=== PATIENT | male | born 1995 | race Hispanic/Latino ===

== ENCOUNTER 2018-03-24 19:20 | Emergency (ER) | payer OTHER, SELFPAY ==
[2018-03-24 19:36] VITALS: BP 149/101; PULSE 100; RESP 20; TEMP 37.2; O2SAT 97; BMI 31.3
--- NOTE | 2018-03-24 20:45 | ED.URI ---
HPI - URI/Sore Throat <LEVAR MillsP - Last Filed: 03/24/18 21:26> General Chief Complaint: Upper Respiratory Symptoms Stated Complaint: chest pain Time Seen by Provider: 03/24/18 20:39 Source: patient Mode of arrival: ambulatory Limitations: no limitations History of Present Illness MD Complaint: cough and nasal congestion Onset (ago): week(s) (1) Duration: constant Severity: mild Relieving factors: other (none tried) Exacerbating factors: nothing Description of mucous: yellow Able to tolerate fluids by mouth: Yes Associated symptoms: nasal congestion, sore throat and cough Treatments prior to arrival: none Related Data Allergies Allergy/AdvReac Type Severity Reaction Status Date / Time Penicillins Allergy Intermediate Verified 03/24/18 19:41 Sulfa (Sulfonamide Allergy Mild Verified 03/24/18 19:42 Antibiotics) Review of Systems <KAYLI Mills - Last Filed: 03/24/18 21:26> Review of Systems All systems reviewed & are unremarkable except as noted in HPI and below Constitutional Reports as per HPI, Denies fever(s) and Denies headache(s) ENT Ears, Nose, Mouth, and Throat: Reports as per HPI, Denies facial pain, Denies headache(s), Reports nasal congestion and Denies neck pain Cardiovascular Denies chest pain and Denies dyspnea Respiratory Reports cough, Denies excessive phlegm production, Reports pain with cough and Denies dyspnea Gastrointestinal Gastrointestinal: Denies abdominal pain Musculoskeletal Denies neck pain Neurologic Denies headache(s) Exam <LEVAR MillsP - Last Filed: 03/24/18 21:26> Initial Vital Signs Initial Vital Signs: Vital Signs Temperature 98.9 F 03/24/18 19:36 Pulse Rate 100 H 03/24/18 19:36 Respiratory Rate 20 03/24/18 19:36 Blood Pressure 149/101 H 03/24/18 19:36 Pulse Oximetry 97 03/24/18 19:36 Const General: cooperative, healthy appearing, comfortable, well developed and well groomed Nutritional Appearance: average body habitus and well nourished Orientation: alert, awake and oriented x3 HENMT Head: normal to inspection and normocephalic Ears: hearing grossly normal bilaterally, external ears normal and TM's normal bilaterally Nose: external nose normal and No nasal discharge Face and sinus: normal facial exam, sinuses nontender and face symmetric Mouth: oral mucosae normal, lip normal and moist mucous membranes Teeth and gingiva: dentition normal and gingiva normal Throat: posterior oropharynx normal, uvula midline and abnormal tonsil on the right erythema and hypertrophy 1+; no exudates, on the left erythema and hypertrophy 1+; no exudates and bilaterally Eyes General: appearance normal, both eyes and all related structures Visual Belcher: normal visual belcher by confrontation Alignment and Position: alignment normal Periorbital: periorbital findings normal Eyelids: eyelids normal Conjunctivae: conjunctivae normal Sclera: sclerae normal Cornea: corneas normal Pupils: PERRL Neck Neck: normal visual inspection, full ROM, no meningeal signs, trachea midline, supple, No positive Brudzinski's sign and No positive Kernig's sign Chest Chest: normal inspection of the chest Resp Effort & Inspection: normal respiratory effort and able to speak in complete sentences Auscultation: clear to auscultation bilaterally, no crackles and no wheezes Cardio Rate: regular rate Rhythm: regular rhythm Heart Sounds: S1 normal and S2 normal Back/Spine/Pelvis Back: normal to inspection Cervical Spine: normal cervical lordosis Thoracic/Lumbar Spine: thoracic and lumbar spine normal to inspection Skin General: no rashes or lesions noted Rashes: no rashes Neuro General: alert, awake and oriented x3 Cognition: normal cognition Speech: speech normal Gait: normal gait Motor: muscle tone normal throughout Sensory Exam: no sensory deficits noted Extrem General: normal to inspection and full ROM Right upper extremity: normal to inspection and full ROM Left upper extremity: normal to inspection and full ROM Right lower extremity: normal to inspection and full ROM Left lower extremity: normal to inspection and full ROM Psych Appearance: grossly normal and well kempt Mental Status: mental status grossly normal Speech and Movement: speech and movement normal Mood: congruent mood Affect: normal affect Attitude: cooperative Thought Process: normal Thought Content: normal Judgment: judgment good <Mai Uribe, DO - Last Filed: 03/25/18 02:55> Initial Vital Signs Initial Vital Signs: Vital Signs Temperature 98.9 F 03/24/18 19:36 Pulse Rate 100 H 03/24/18 19:36 Respiratory Rate 20 03/24/18 19:36 Blood Pressure 149/101 H 03/24/18 19:36 Pulse Oximetry 97 03/24/18 19:36 Course <Julia Neil PRODUCTION MACHINE OPERATOR - Last Filed: 03/24/18 21:26> Orders Ordered: ED Orders 03/24/18 20:51 XR chest 2V Stat Vital Signs - 8 hr 03/24/18 19:36 03/24/18 21:27 Temperature 98.9 F 98.6 F Pulse Rate 100 H 97 H Respiratory Rate 20 16 Blood Pressure 149/101 H 143/97 H Pulse Oximetry 97 99 <Mai Uribe DO - Last Filed: 03/25/18 02:55> Orders Ordered: ED Orders 03/24/18 20:51 XR chest 2V Stat Vital Signs - 8 hr 03/24/18 19:36 03/24/18 21:27 Temperature 98.9 F 98.6 F Pulse Rate 100 H 97 H Respiratory Rate 20 16 Blood Pressure 149/101 H 143/97 H Pulse Oximetry 97 99 MDM - URI/Sore Throat <Julia Neil PRODUCTION MACHINE OPERATOR - Last Filed: 03/24/18 21:26> Differential Diagnosis Differential diagnosis: Likely upper respiratory infection, sinusitis, viral infection, bronchitis, influenza, pharyngitis and other (tonsillitis, pneumonia, pleurisy, costochondritis) Imaging Data Chest x-ray: Radiologist's impression: Patient: Tony Dueñas MR#: [id number] : 1995 Acct:[id number] Age/Sex: 22 / M Date of Service: 03/24/18 Loc: ED Accession Number: [id number] Procedure: XR chest 2V Ordering Provider: Julia Neil PROCEDURE: XR CHEST 2V INDICATIONS: 22 year-old male with cough and fevers. TECHNIQUE: 2 views of the chest were acquired. COMPARISON: None. FINDINGS: Surgical changes and devices: None. Lungs and pleura: No pleural effusions or pneumothorax. Lungs are clear. Mediastinum: Mediastinal contours are normal. Heart size is normal. Bones and chest wall: No suspicious bony abnormalities. Soft tissues appear unremarkable. IMPRESSION: No acute cardiopulmonary disease. Dictated by: Ulices Mendez M.D. on 03/24/2018 at 21:16 Approved by: Ulices Mendez M.D. on 03/24/2018 at 21:16 Discharge Plan Departure Patient Disposition: Home, Self-Care Clinical Impression: Upper respiratory infection Discharge Date/Time: 03/24/18 21:40 Interventions: ED Discharge Assessment Last Done: 03/24/18 21:27 Instructions: DI for Viral Upper Respiratory Infection -- Adult Activity Restrictions/Additional Instructions: over the counter cough/cold medicine, push fluids, monitor for any fever and treat accordingly with tylenol/motrin, as discussed Referrals: Zenon Gillespie MD [Physician] - (in 5-7 days as needed) Stand Alone Forms: Work/School Restrictions <Mai Uribe DO - Last Filed: 03/25/18 02:55> Cosign ED Attending Elioature Attestation: I was immediately available in the department for consultation. Documentation has been reviewed. I agree with assessment and plan.
--- NOTE | 2018-03-24 20:51 | DI.RAD.S_ITS ---
PROCEDURE: XR CHEST 2V INDICATIONS: 22 year-old male with cough and fevers. TECHNIQUE: 2 views of the chest were acquired. COMPARISON: None. FINDINGS: Surgical changes and devices: None. Lungs and pleura: No pleural effusions or pneumothorax. Lungs are clear. Mediastinum: Mediastinal contours are normal. Heart size is normal. Bones and chest wall: No suspicious bony abnormalities. Soft tissues appear unremarkable. IMPRESSION: No acute cardiopulmonary disease. Dictated by: Ulices Mendez M.D. on 03/24/2018 at 21:16 Approved by: Ulices Mendez M.D. on 03/24/2018 at 21:16
--- NOTE | 2018-03-24 20:59 | ED_ITS ---
HPI - URI/Sore Throat <LEVAR MillsP - Last Filed: 03/24/18 21:26> General Chief Complaint: Upper Respiratory Symptoms Stated Complaint: chest pain Time Seen by Provider: 03/24/18 20:39 Source: patient Mode of arrival: ambulatory Limitations: no limitations History of Present Illness MD Complaint: cough and nasal congestion Onset (ago): week(s) (1) Duration: constant Severity: mild Relieving factors: other (none tried) Exacerbating factors: nothing Description of mucous: yellow Able to tolerate fluids by mouth: Yes Associated symptoms: nasal congestion, sore throat and cough Treatments prior to arrival: none Related Data Allergies Allergy/AdvReac Type Severity Reaction Status Date / Time Penicillins Allergy Intermediate Verified 03/24/18 19:41 Sulfa (Sulfonamide Allergy Mild Verified 03/24/18 19:42 Antibiotics) Review of Systems <KAYLI Mills - Last Filed: 03/24/18 21:26> Review of Systems All systems reviewed & are unremarkable except as noted in HPI and below Constitutional Reports as per HPI, Denies fever(s) and Denies headache(s) ENT Ears, Nose, Mouth, and Throat: Reports as per HPI, Denies facial pain, Denies headache(s), Reports nasal congestion and Denies neck pain Cardiovascular Denies chest pain and Denies dyspnea Respiratory Reports cough, Denies excessive phlegm production, Reports pain with cough and Denies dyspnea Gastrointestinal Gastrointestinal: Denies abdominal pain Musculoskeletal Denies neck pain Neurologic Denies headache(s) Exam <LEVAR MillsP - Last Filed: 03/24/18 21:26> Initial Vital Signs Initial Vital Signs: Vital Signs Temperature 98.9 F 03/24/18 19:36 Pulse Rate 100 H 03/24/18 19:36 Respiratory Rate 20 03/24/18 19:36 Blood Pressure 149/101 H 03/24/18 19:36 Pulse Oximetry 97 03/24/18 19:36 Const General: cooperative, healthy appearing, comfortable, well developed and well groomed Nutritional Appearance: average body habitus and well nourished Orientation: alert, awake and oriented x3 HENMT Head: normal to inspection and normocephalic Ears: hearing grossly normal bilaterally, external ears normal and TM's normal bilaterally Nose: external nose normal and No nasal discharge Face and sinus: normal facial exam, sinuses nontender and face symmetric Mouth: oral mucosae normal, lip normal and moist mucous membranes Teeth and gingiva: dentition normal and gingiva normal Throat: posterior oropharynx normal, uvula midline and abnormal tonsil on the right erythema and hypertrophy 1+; no exudates, on the left erythema and hypertrophy 1+; no exudates and bilaterally Eyes General: appearance normal, both eyes and all related structures Visual Belcher: normal visual belcher by confrontation Alignment and Position: alignment normal Periorbital: periorbital findings normal Eyelids: eyelids normal Conjunctivae: conjunctivae normal Sclera: sclerae normal Cornea: corneas normal Pupils: PERRL Neck Neck: normal visual inspection, full ROM, no meningeal signs, trachea midline, supple, No positive Brudzinski's sign and No positive Kernig's sign Chest Chest: normal inspection of the chest Resp Effort & Inspection: normal respiratory effort and able to speak in complete sentences Auscultation: clear to auscultation bilaterally, no crackles and no wheezes Cardio Rate: regular rate Rhythm: regular rhythm Heart Sounds: S1 normal and S2 normal Back/Spine/Pelvis Back: normal to inspection Cervical Spine: normal cervical lordosis Thoracic/Lumbar Spine: thoracic and lumbar spine normal to inspection Skin General: no rashes or lesions noted Rashes: no rashes Neuro General: alert, awake and oriented x3 Cognition: normal cognition Speech: speech normal Gait: normal gait Motor: muscle tone normal throughout Sensory Exam: no sensory deficits noted Extrem General: normal to inspection and full ROM Right upper extremity: normal to inspection and full ROM Left upper extremity: normal to inspection and full ROM Right lower extremity: normal to inspection and full ROM Left lower extremity: normal to inspection and full ROM Psych Appearance: grossly normal and well kempt Mental Status: mental status grossly normal Speech and Movement: speech and movement normal Mood: congruent mood Affect: normal affect Attitude: cooperative Thought Process: normal Thought Content: normal Judgment: judgment good <Mai Uribe, DO - Last Filed: 03/25/18 02:55> Initial Vital Signs Initial Vital Signs: Vital Signs Temperature 98.9 F 03/24/18 19:36 Pulse Rate 100 H 03/24/18 19:36 Respiratory Rate 20 03/24/18 19:36 Blood Pressure 149/101 H 03/24/18 19:36 Pulse Oximetry 97 03/24/18 19:36 Course <Julia Neil ANIMATION PRODUCER - Last Filed: 03/24/18 21:26> Orders Ordered: ED Orders 03/24/18 20:51 XR chest 2V Stat Vital Signs - 8 hr 03/24/18 19:36 03/24/18 21:27 Temperature 98.9 F 98.6 F Pulse Rate 100 H 97 H Respiratory Rate 20 16 Blood Pressure 149/101 H 143/97 H Pulse Oximetry 97 99 <Mai Uribe DO - Last Filed: 03/25/18 02:55> Orders Ordered: ED Orders 03/24/18 20:51 XR chest 2V Stat Vital Signs - 8 hr 03/24/18 19:36 03/24/18 21:27 Temperature 98.9 F 98.6 F Pulse Rate 100 H 97 H Respiratory Rate 20 16 Blood Pressure 149/101 H 143/97 H Pulse Oximetry 97 99 MDM - URI/Sore Throat <Julia Neil ANIMATION PRODUCER - Last Filed: 03/24/18 21:26> Differential Diagnosis Differential diagnosis: Likely upper respiratory infection, sinusitis, viral infection, bronchitis, influenza, pharyngitis and other (tonsillitis, pneumonia , pleurisy, costochondritis) Imaging Data Chest x-ray: Radiologist's impression: Patient: Tony Dueñas MR#: [id number] : 1995 Acct:[id number] Age/Sex: 22 / M Date of Service: 03/24/18 Loc: ED Accession Number: [id number] Procedure: XR chest 2V Ordering Provider: Julia Neil PROCEDURE: XR CHEST 2V INDICATIONS: 22 year-old male with cough and fevers. TECHNIQUE: 2 views of the chest were acquired. COMPARISON: None. FINDINGS: Surgical changes and devices: None. Lungs and pleura: No pleural effusions or pneumothorax. Lungs are clear. Mediastinum: Mediastinal contours are normal. Heart size is normal. Bones and chest wall: No suspicious bony abnormalities. Soft tissues appear unremarkable. IMPRESSION: No acute cardiopulmonary disease. Dictated by: Ulices Mendez M.D. on 03/24/2018 at 21:16 Approved by: Ulices Mendez M.D. on 03/24/2018 at 21:16 Discharge Plan Departure Patient Disposition: Home, Self-Care Clinical Impression: Upper respiratory infection Discharge Date/Time: 03/24/18 21:40 Interventions: ED Discharge Assessment Last Done: 03/24/18 21:27 Instructions: DI for Viral Upper Respiratory Infection -- Adult Activity Restrictions/Additional Instructions: over the counter cough/cold medicine, push fluids, monitor for any fever and treat accordingly with tylenol/motrin, as discussed Referrals: Zenon Gillespie MD [Physician] - (in 5-7 days as needed) Stand Alone Forms: Work/School Restrictions <Mai Uribe DO - Last Filed: 03/25/18 02:55> Cosign ED Attending Elioature Attestation: I was immediately available in the department for consultation. Documentation has been reviewed. I agree with assessment and plan.
[2018-03-24 21:27] VITALS: BP 143/97; PULSE 97; RESP 16; TEMP 37; O2SAT 99
== END 2018-03-24 21:40 | disposition home or self-care (01) ==
PROVIDERS: Emergency Provider Nurse Practitioner
DX: J06.9 Acute upper respiratory infection, unspecified (principal)
CPT/HCPCS: 71046; 99282; 99283